=== PATIENT | male | born 1955 | race Caucasian/White ===

== ENCOUNTER 2019-11-18 07:15 | Day surgery (SDC) | payer OTHER ==
[~2019-11-18 07:15] MED LIST: LEVOTHYROXINE25 MCG PO
== END 2019-11-18 15:30 | disposition home or self-care (01) ==
LOC: CIR.AMB 07:15 → ADM 09:15 → CIR.AMB 09:15
DX: M77.12 Lateral epicondylitis, left elbow (principal); M66.232 Spontaneous rupture of extensor tendons, left forearm; M24.822 Other specific joint derangements of left elbow, not elsewhere classified

== ENCOUNTER 2025-04-10 08:26 | Emergency (ER) | payer OTHER ==
[~2025-04-10] VITALS: Ht 172.7 cm; Wt 49.9 kg
[2025-04-10] MEDS ORDERED: MEMANTINE HCL5 MG PO (08:38)
[2025-04-10] MEDS ORDERED: ATORVASTATIN CA10 MG PO (08:38)
[2025-04-10] MEDS ORDERED: TAMS0.4C PO (08:38)
[2025-04-10] MEDS ORDERED: LEVSIN0.125 MG PO (08:38)
[2025-04-10] MEDS ORDERED: ALENDRONATE SOD70 MG PO (08:39)
[2025-04-10] MEDS ORDERED: LORazepam 2 MG/ML VIAL IM ONE (09:00)
[2025-04-10] MEDS ORDERED: LORazepam 2 MG/ML VIAL ONE (09:04)
[2025-04-10] MEDS ORDERED: BARIUM SULFATE 450 ML ORAL.SUSP PO ONE (09:07)
[2025-04-10 09:28] LABS: URINE APPEARANCE Clear; URINE BILIRRUBIN Small (NEGATIVE); URINE BLOOD Negative; URINE COLOR Dark Yellow; URINE GLUCOSE Negative (NEGATIVE); URINE LEUKOCYTE Trace; URINE NITRATE Negative; URINE PROTEIN 30 (NEGATIVE)
[2025-04-10 09:29] LABS: URINE BACTERIA 20.8 uL (0.0-1933); URINE CAST 1.62 uL (0.0-1.40); URINE EPITHELIAL CELLS 4.2 uL (0.0-38.8); URINE RBC 3.6 uL (0.0-20.8); URINE WBC 43.5 uL (0.0-23.2)
[2025-04-10 09:31] LABS: BASO % 0.4 % (0.1-1.2); EOS # 0.03 (0.04-0.54); EOS % 0.3 % (0.7-7.0); HEMATOCRIT 40.4 % (40.1-51.0); HEMOGLOBIN 13.6 g/dL (13.7-17.5); LYMPH # 1.08 (1.18-3.74); LYMPH % 10.2 % (19.3-53.1); MEAN CORPUSCULAR HEMOGLOBIN 29.1 pg (25.6-32.2); MONO # 0.75 (0.24-0.82); MONO % 7.1 % (4.7-12.5); NEUT # 8.63 (1.56-6.13); NEUT % 81.7 % (34.0-71.1); PLATELET COUNT 235 K/uL (163-369); RED BLOOD COUNT 4.68 M/uL (4.63-6.08); RED CELL DISTRIBUTION WIDTH 12.5 % (11.6-14.4)
[2025-04-10 09:59] LABS: URINE KETONE 40 (NEGATIVE)
[2025-04-10 10:21] LABS: CREATININE SERUM 1.05 mg/dL (0.70-1.30); GFR 70.45; POTASSIUM 3.53 mEq/L (3.5-5.1)
[2025-04-10] MEDS ORDERED: CIPROFLOXACIN IN 5 % DEXTROSE 400 MG/200 ML PIGGYBAG IV SCH (14:13)
[2025-04-10] MEDS ORDERED: METRONIDAZOLE/SODIUM CHLORIDE 500 MG/100 ML PIGGYBACK IV ONE ×2 (14:15→14:25)
[2025-04-10] MEDS ORDERED: CIPROFLOXACIN IN 5 % DEXTROSE 400 MG/200 ML PIGGYBAG IV ONE (14:25)
[2025-04-10] MEDS ORDERED: FLUMAZENIL 0.5 MG/5 ML ML IV ONE ×3 (15:27→15:46)
[2025-04-10] MEDS ORDERED: CIPRO500 MG PO (16:36)
[2025-04-10] MEDS ORDERED: LEVSIN/SL0.125 MG SL (16:36)
[2025-04-10] MEDS ORDERED: PROBIOTIC1 EAC2 PO (16:36)
[2025-04-10] MEDS ORDERED: PEPCID AC20 MG PO (16:36)
[2025-04-10] MEDS ORDERED: METRONIDAZOLE500 MG PO (16:36)
== END 2025-04-10 17:34 | disposition home or self-care (01) ==
LOC: ER 08:31
PROVIDERS: Emergency Medicine
DX: R10.9 Unspecified abdominal pain (principal); K57.30 Diverticulosis of large intestine without perforation or abscess without bleeding; Z88.0 Allergy status to penicillin; M19.90 Unspecified osteoarthritis, unspecified site; E78.00 Pure hypercholesterolemia, unspecified; E03.8 Other specified hypothyroidism
CPT/HCPCS: 36415; 74177; 96365; 96372; 99284; J0744; J3490; Q9965